=== PATIENT | male | born 1960 | race African-American/Black ===

== ENCOUNTER 2016-06-19 15:42 | Emergency (ER) | payer MEDICAID ==
[~2016-06-19] VITALS: Ht 182.9 cm; Wt 99.0 kg
[~2016-06-19 15:42] MED LIST: AMLO-512 PO
[2016-06-19 17:45] VITALS: BP 124/88
== END 2016-06-19 18:59 | disposition left against medical advice (07) ==
LOC: EMS 15:50
DX: S61.451A Open bite of right hand, initial encounter (principal); I10 Essential (primary) hypertension; F17.210 Nicotine dependence, cigarettes, uncomplicated; Z53.21 Procedure and treatment not carried out due to patient leaving prior to being seen by health care provider; W54.0XXA Bitten by dog, initial encounter; Y93.89 Activity, other specified; Y92.89 Other specified places as the place of occurrence of the external cause; Y99.8 Other external cause status

== ENCOUNTER 2016-06-24 00:05 | Emergency (ER) | payer MEDICAID ==
[~2016-06-24] VITALS: Ht 182.9 cm; Wt 100.0 kg
[2016-06-24] MEDS ORDERED: SULFAMETHOX/TRIMETH DS 800-160 MG/TABLET PO ONE (02:00)
[2016-06-24] MEDS ORDERED: CEPHALEXIN MONOHYDRATE 500 MG CAPSULE PO ONE (02:00)
[2016-06-24 02:04] VITALS: BP 133/86
== END 2016-06-24 02:04 | disposition home or self-care (01) ==
LOC: EMS 00:06
DX: L02.211 Cutaneous abscess of abdominal wall (principal); A49.02 Methicillin resistant Staphylococcus aureus infection, unspecified site; I10 Essential (primary) hypertension; F11.90 Opioid use, unspecified, uncomplicated; F17.210 Nicotine dependence, cigarettes, uncomplicated
CPT/HCPCS: 99283

== ENCOUNTER → 2017-09-23 | Outpatient (CLI) | payer MEDICAID ==
[2017-09-23 12:46] LABS: BASOPHILS % (AUTO) 0.7 % (0.0-2.0); EOSINOPHILS % (AUTO) 3.1 % (1.0-6.0); HEMATOCRIT 40.1 % (41-53); HEMOGLOBIN 13.5 g/dL (13.5-17.5); LYMPHOCYTES # (AUTO) 1.8 K/uL (1.0-4.8); LYMPHOCYTES % (AUTO) 31.9 % (22.0-44.0); MEAN CORPUSCULAR HEMOGLOBIN 29.8 pg (26.0-34.0); MEAN CORPUSCULAR HGB CONC 33.6 G/dL (31.0-37.0); MEAN CORPUSCULAR VOLUME 89 fL (80-100); MONOCYTES # (AUTO) 0.5 K/uL (0.1-1.0); MONOCYTES % (AUTO) 9.8 % (2.0-9.0); NEUTROPHILS % (AUTO) 54.5 % (40.0-70.0); PLATELET COUNT (AUTO) 205 K/uL (150-450); RED BLOOD CELL COUNT(AUTO) 4.52 MIL/uL (4.50-5.90); RED CELL DISTRIBUTION WIDTH 12.3 % (11.5-14.5)
[2017-09-23 12:58] LABS: HEMOGLOBIN A1C 5.2 % (4.5-6.2)
[2017-09-23 13:42] LABS: ALANINE AMINOTRANSFERASE 48 U/L (12-78); ALBUMIN 3.8 g/dL (3.4-5.0); ALKALINE PHOSPHATASE 74 U/L (46-116); ANION GAP 8 mmol/L (8-16); ASPARTATE AMINOTRANSFERASE 37 U/L (15-37); BILIRUBIN,TOTAL 0.5 mg/dL (0.1-1.0); CALCIUM, TOTAL 8.8 mg/dL (8.8-10.5); CARBON DIOXIDE 29 mmol/L (22-29); CHLORIDE 100 mmol/L (98-107); CHOL/HDL RATIO 2.6 (4.2-7.3); CHOLESTEROL 129 mg/dL (131-200); CREATININE 0.97 mg/dL (0.60-1.30); FREE T4 (FREE THYROXINE) 1.21 ng/dL (0.76-1.46); GLOMERULAR FILTR. RATE CALC > 60 mL/min (>60); GLUCOSE,RANDOM 137 mg/dL (70-110); HDL CHOLESTEROL 49 mg/dL (40-60); LDL CHOL (CALC.) 59 mg/dL (0-130); SODIUM SERUM 137 mmol/L (136-145); THYROID STIMULATING HORMONE 0.99 uIU/mL (0.36-3.74); TOTAL PROTEIN, SERUM 7.5 g/dL (6.4-8.2); TRIGLYCERIDES 107 mg/dL (15-150); UREA NITROGEN, BLOOD 12 mg/dL (7-18)
== END | disposition home or self-care (01) ==
LOC: LABPV 11:13
PROVIDERS: ATTEND Internal Medicine Cardiovascular Disease
DX: I11.0 Hypertensive heart disease with heart failure (principal); I50.9 Heart failure, unspecified; E11.8 Type 2 diabetes mellitus with unspecified complications; D56.5 Hemoglobin E-beta thalassemia; E55.9 Vitamin D deficiency, unspecified
CPT/HCPCS: 82306; 83036; 83735; 84439; 84443

== ENCOUNTER 2018-08-28 08:27 | Emergency (ER) | payer MEDICAID ==
[~2018-08-28] VITALS: Ht 182.9 cm; Wt 101.8 kg
[2018-08-28 11:00] VITALS: BP 89/90
[2018-08-28] MEDS ORDERED: CARISOPRODOL 350 MG TABLET PO ONE (11:15)
[2018-08-28] MEDS ORDERED: OxyCODONE HCL/ACETAMINOPHEN 5-325 MG TABLET PO ONE (11:15)
[2018-08-28 11:32] LABS: APPEARANCE,URINE CLEAR (CLEAR); GLUCOSE, URINE (UA) NEGATIVE (NEGATIVE); KETONES,URINE TRACE mg/dL (NEGATIVE); LEUKOCYTE ESTERASE ,URINE SMALL (NEGATIVE); NITRATE,URINE NEGATIVE (NEGATIVE); OCCULT BLOOD,URINE NEGATIVE (NEGATIVE); PH,URINE 5.5 (5.0-8.0); PROTEIN,URINE NEGATIVE (NEGATIVE)
[2018-08-28 11:49] LABS: BILIRUBIN,URINE PRELIM. POSITIVE (NEGATIVE); RBC,URINE None Seen /HPF (0-2)
[2018-08-28 11:50] LABS: BACTERIA,URINE Few /HPF (None Seen); SQUAMOUS EPITHELIAL CELL,UR Rare /LPF (None Seen)
== END 2018-08-28 14:06 | disposition home or self-care (01) ==
LOC: EMS 08:28
DX: S39.012A Strain of muscle, fascia and tendon of lower back, initial encounter (principal); I10 Essential (primary) hypertension; F17.210 Nicotine dependence, cigarettes, uncomplicated; F11.90 Opioid use, unspecified, uncomplicated; X58.XXXA Exposure to other specified factors, initial encounter; Y93.89 Activity, other specified; Y92.89 Other specified places as the place of occurrence of the external cause; Y99.8 Other external cause status

== ENCOUNTER 2019-08-16 11:47 | Emergency (ER) | payer MEDICAID ==
[~2019-08-16] VITALS: Ht 172.7 cm; Wt 85.0 kg
[~2019-08-16 11:47] MED LIST changes: -AMLO-512 PO; +AMLO10TA7 PO
[2019-08-16] MEDS ORDERED: METO50 PO (11:57)
[2019-08-16 14:24] LABS: INFLUENZA TYPE A NEGATIVE FOR TYPE A (NEGATIVE); INFLUENZA TYPE B NEGATIVE FOR TYPE B (NEGATIVE)
[2019-08-16 14:45] VITALS: BP 140/78
== END 2019-08-16 14:52 | disposition home or self-care (01) ==
LOC: EMS 11:49
DX: J20.9 Acute bronchitis, unspecified (principal); R19.7 Diarrhea, unspecified; I10 Essential (primary) hypertension; F17.210 Nicotine dependence, cigarettes, uncomplicated; F11.90 Opioid use, unspecified, uncomplicated; Z79.899 Other long term (current) drug therapy
CPT/HCPCS: 87804

== ENCOUNTER 2020-11-19 07:41 | Emergency (ER) | payer MEDICAID ==
[~2020-11-19] VITALS: Ht 182.9 cm; Wt 104.5 kg
[~2020-11-19 07:41] MED LIST changes: +AMLO-258 PO; -AMLO10TA7 PO; +METO50 PO
[2020-11-19] MEDS ORDERED: AMOX500C2 PO (07:49)
[2020-11-19 09:30] LABS: BASOPHILS % (AUTO) 0.8 % (0.0-2.0); EOSINOPHILS % (AUTO) 4.9 % (1.0-6.0); HEMATOCRIT 36.1 % (41-53); HEMOGLOBIN 11.7 g/dL (13.5-17.5); LYMPHOCYTES # (AUTO) 2.2 K/uL (1.0-4.8); LYMPHOCYTES % (AUTO) 38.1 % (22.0-44.0); MEAN CORPUSCULAR HEMOGLOBIN 29.7 pg (26.0-34.0); MEAN CORPUSCULAR HGB CONC 32.3 G/dL (31.0-37.0); MEAN CORPUSCULAR VOLUME 92 fL (80-100); MONOCYTES # (AUTO) 0.7 K/uL (0.1-1.0); NEUTROPHILS # (AUTO) 2.5 K/uL (1.8-7.7); NEUTROPHILS % (AUTO) 43.2 % (40.0-70.0); PLATELET COUNT (AUTO) 220 K/uL (150-450); RED BLOOD CELL COUNT(AUTO) 3.92 MIL/uL (4.50-5.90)
[2020-11-19 09:37] LABS: APPEARANCE,URINE CLEAR (CLEAR); BILIRUBIN,URINE NEGATIVE (NEGATIVE); GLUCOSE, URINE (UA) NEGATIVE (NEGATIVE); KETONES,URINE NEGATIVE (NEGATIVE); LEUKOCYTE ESTERASE ,URINE TRACE (NEGATIVE); NITRATE,URINE NEGATIVE (NEGATIVE); OCCULT BLOOD,URINE NEGATIVE (NEGATIVE); PROTEIN,URINE NEGATIVE (NEGATIVE); UROBILINOGEN,URINE 0.2 mg/dL (<=1.0)
[2020-11-19 09:40] LABS: ANION GAP 6 mmol/L (8-16); CALCIUM, TOTAL 8.4 mg/dL (8.8-10.5); CARBON DIOXIDE 33 mmol/L (22-29); CHLORIDE 103 mmol/L (98-107); CREATININE 0.95 mg/dL (0.60-1.30); GLOMERULAR FILTR. RATE CALC > 60 mL/min (>60); GLUCOSE,RANDOM 130 mg/dL (70-110); POTASSIUM 3.9 mmol/L (3.5-5.1); SODIUM SERUM 142 mmol/L (136-145); UREA NITROGEN, BLOOD 13 mg/dL (7-18)
[2020-11-19 09:49] LABS: ALANINE AMINOTRANSFERASE 23 U/L (12-78); ALKALINE PHOSPHATASE 71 U/L (46-116); ASPARTATE AMINOTRANSFERASE 21 U/L (15-37); BILIRUBIN,TOTAL 0.2 mg/dL (0.1-1.0); TOTAL PROTEIN, SERUM 6.6 g/dL (6.4-8.2)
[2020-11-19 09:58] LABS: B-TYPE NATRIURETIC PEPTIDE 30 pg/mL (0-100)
[2020-11-19 10:06] LABS: BACTERIA,URINE None Seen /HPF (None Seen); RBC,URINE None Seen /HPF (0-2); SQUAMOUS EPITHELIAL CELL,UR None Seen /LPF (None Seen)
[2020-11-19 10:37] VITALS: BP 122/70
== END 2020-11-19 10:36 | disposition home or self-care (01) ==
LOC: EMS 07:44
DX: R60.0 Localized edema (principal); R77.0 Abnormality of albumin; I10 Essential (primary) hypertension; F17.210 Nicotine dependence, cigarettes, uncomplicated; F11.90 Opioid use, unspecified, uncomplicated
CPT/HCPCS: 80053; 81001; 83880; 85025; 85379; 99283

== ENCOUNTER 2020-12-02 08:21 | Emergency (ER) | payer MEDICAID ==
[~2020-12-02] VITALS: Ht 185.4 cm; Wt 106.8 kg
[~2020-12-02 08:21] MED LIST changes: +AMOX500C2 PO
[2020-12-02 08:32] VITALS: BP 126/81
== END 2020-12-02 09:17 | disposition home or self-care (01) ==
LOC: EMS 08:25
DX: I10 Essential (primary) hypertension (principal); R60.0 Localized edema
CPT/HCPCS: 99283; Z7502

== ENCOUNTER 2021-08-31 17:50 | Emergency (ER) | payer MEDICAID ==
[~2021-08-31] VITALS: Ht 182.9 cm; Wt 101.0 kg
[2021-08-31 18:36] LABS: BASOPHILS % (AUTO) 0.4 % (0.0-2.0); EOSINOPHILS % (AUTO) 3.8 % (1.0-6.0); HEMATOCRIT 35.8 % (41-53); HEMOGLOBIN 11.5 g/dL (13.5-17.5); LYMPHOCYTES # (AUTO) 3.2 K/uL (1.0-4.8); LYMPHOCYTES % (AUTO) 44.3 % (22.0-44.0); MEAN CORPUSCULAR HEMOGLOBIN 28.8 pg (26.0-34.0); MEAN CORPUSCULAR HGB CONC 32.2 G/dL (31.0-37.0); MEAN CORPUSCULAR VOLUME 89 fL (80-100); MONOCYTES # (AUTO) 0.9 K/uL (0.1-1.0); MONOCYTES % (AUTO) 12.9 % (2.0-9.0); NEUTROPHILS # (AUTO) 2.8 K/uL (1.8-7.7); NEUTROPHILS % (AUTO) 38.6 % (40.0-70.0); PLATELET COUNT (AUTO) 204 K/uL (150-450); RED BLOOD CELL COUNT(AUTO) 4.01 MIL/uL (4.50-5.90); RED CELL DISTRIBUTION WIDTH 12.9 % (11.5-14.5)
[2021-08-31 18:44] LABS: ANION GAP 8 mmol/L (8-16); CALCIUM, TOTAL 8.5 mg/dL (8.8-10.5); CARBON DIOXIDE 30 mmol/L (22-29); CHLORIDE 102 mmol/L (98-107); CREATININE 1.07 mg/dL (0.60-1.30); GLOMERULAR FILTR. RATE CALC > 60 mL/min (>60); GLUCOSE,RANDOM 92 mg/dL (70-110); POTASSIUM 3.5 mmol/L (3.5-5.1); SODIUM SERUM 140 mmol/L (136-145); UREA NITROGEN, BLOOD 19 mg/dL (7-18)
[2021-08-31 18:49] LABS: ALANINE AMINOTRANSFERASE 20 U/L (12-78); ALBUMIN 3.5 g/dL (3.4-5.0); ALKALINE PHOSPHATASE 80 U/L (46-116); ASPARTATE AMINOTRANSFERASE 14 U/L (15-37); BILIRUBIN,TOTAL 0.2 mg/dL (0.1-1.0); TOTAL PROTEIN, SERUM 7.3 g/dL (6.4-8.2)
[2021-08-31 21:01] VITALS: BP 117/93
== END 2021-08-31 21:07 | disposition home or self-care (01) ==
LOC: EMS 17:52
DX: R20.2 Paresthesia of skin (principal); R60.0 Localized edema; I10 Essential (primary) hypertension; F17.210 Nicotine dependence, cigarettes, uncomplicated; Z79.899 Other long term (current) drug therapy
CPT/HCPCS: 80053; 85025; 93971; 99284

== ENCOUNTER 2022-01-01 07:50 | Emergency (ER) | payer MEDICAID ==
[~2022-01-01] VITALS: Ht 182.9 cm; Wt 102.3 kg
[2022-01-01] MEDS ORDERED: METH5SOL3 PO (08:05)
[2022-01-01] MEDS ORDERED: KETOROLAC TROMETHAMINE 30 MG/ML VIAL IM ONE (08:45)
[2022-01-01 10:35] VITALS: BP 112/68
== END 2022-01-01 10:37 | disposition home or self-care (01) ==
LOC: EMS 07:59
DX: M79.671 Pain in right foot (principal); I10 Essential (primary) hypertension; K74.60 Unspecified cirrhosis of liver; F17.210 Nicotine dependence, cigarettes, uncomplicated; Z87.19 Personal history of other diseases of the digestive system
CPT/HCPCS: 99283; 73630; 96372; J1885

== ENCOUNTER 2022-03-07 07:30 | Emergency (ER) | payer MEDICAID ==
[~2022-03-07] VITALS: Ht 182.9 cm; Wt 104.5 kg
[~2022-03-07 07:30] MED LIST changes: -AMOX500C2 PO; +METH5SOL3 PO
[2022-03-07] MEDS ORDERED: ANUSHCS PR (08:06)
[2022-03-07] MEDS ORDERED: DOCU-350 PO (08:06)
[2022-03-07 08:20] VITALS: BP 144/84
== END 2022-03-07 08:31 | disposition home or self-care (01) ==
LOC: EMS 07:36
DX: K64.9 Unspecified hemorrhoids (principal); I10 Essential (primary) hypertension; F17.210 Nicotine dependence, cigarettes, uncomplicated; K74.60 Unspecified cirrhosis of liver
CPT/HCPCS: 99282; Z7502

== ENCOUNTER 2022-11-24 07:35 | Emergency (ER) | payer MEDICAID, OTHER ==
[~2022-11-24] VITALS: Ht 188 cm; Wt 106.8 kg
[~2022-11-24 07:35] MED LIST changes: +ANUSHCS PR; +DOCU-350 PO
[2022-11-24 07:39] VITALS: TEMP 98.1
[2022-11-24] MEDS ORDERED: METHADONE PO (07:39)
[2022-11-24 08:10] LABS: BASOPHILS % (AUTO) 0.5 % (0.0-2.0); EOSINOPHILS % (AUTO) 3.6 % (1.0-6.0); HEMATOCRIT 35.5 % (41-53); HEMOGLOBIN 11.4 g/dL (13.5-17.5); LYMPHOCYTES # (AUTO) 1.9 K/uL (1.0-4.8); LYMPHOCYTES % (AUTO) 28.9 % (22.0-44.0); MEAN CORPUSCULAR HEMOGLOBIN 29.5 pg (26.0-34.0); MEAN CORPUSCULAR VOLUME 92 fL (80-100); MONOCYTES # (AUTO) 0.9 K/uL (0.1-1.0); MONOCYTES % (AUTO) 13.1 % (2.0-9.0); NEUTROPHILS # (AUTO) 3.5 K/uL (1.8-7.7); NEUTROPHILS % (AUTO) 53.9 % (40.0-70.0); PLATELET COUNT (AUTO) 204 K/uL (150-450); RED BLOOD CELL COUNT(AUTO) 3.85 MIL/uL (4.50-5.90); RED CELL DISTRIBUTION WIDTH 13.1 % (11.5-14.5)
[2022-11-24 08:14] LABS: ANION GAP 7 mmol/L (8-16); CALCIUM, TOTAL 8.4 mg/dL (8.8-10.5); CARBON DIOXIDE 29 mmol/L (22-29); CHLORIDE 101 mmol/L (98-107); CREATININE 1.06 mg/dL (0.60-1.30); GLOMERULAR FILTR. RATE CALC > 60 mL/min (>60); GLUCOSE,RANDOM 131 mg/dL (70-110); SODIUM SERUM 137 mmol/L (136-145)
[2022-11-24 08:20] LABS: ALANINE AMINOTRANSFERASE 31 U/L (12-78); ALBUMIN 3.4 g/dL (3.4-5.0); ALKALINE PHOSPHATASE 72 U/L (46-116); ASPARTATE AMINOTRANSFERASE 20 U/L (15-37); BILIRUBIN,TOTAL 0.2 mg/dL (0.1-1.0); LIPASE 41 U/L (73-393); TOTAL PROTEIN, SERUM 7.1 g/dL (6.4-8.2)
[2022-11-24 08:24] LABS: APPEARANCE,URINE CLEAR (CLEAR); BILIRUBIN,URINE NEGATIVE (NEGATIVE); GLUCOSE, URINE (UA) NEGATIVE (NEGATIVE); KETONES,URINE NEGATIVE (NEGATIVE); LEUKOCYTE ESTERASE ,URINE NEGATIVE (NEGATIVE); NITRATE,URINE NEGATIVE (NEGATIVE); OCCULT BLOOD,URINE NEGATIVE (NEGATIVE); PH,URINE 7.5 (5.0-8.0); PROTEIN,URINE NEGATIVE (NEGATIVE); SPECIFIC GRAVITIY, URINE 1.015 (1.003-1.030); UROBILINOGEN,URINE <=1.0 mg/dL (<=1.0)
[2022-11-24] MEDS ORDERED: ONDA-104 PO (09:03)
[2022-11-24 09:41] VITALS: BP 140/82; PULSE 70; RESP 18
== END 2022-11-24 09:41 | disposition home or self-care (01) ==
LOC: EMS 07:44
DX: R11.0 Nausea (principal); R14.0 Abdominal distension (gaseous); I10 Essential (primary) hypertension; K74.60 Unspecified cirrhosis of liver; F17.210 Nicotine dependence, cigarettes, uncomplicated
CPT/HCPCS: 80053; 81003; 83690; 85025; 99283

== ENCOUNTER 2023-03-23 06:56 | Emergency (ER) | payer OTHER ==
[~2023-03-23] VITALS: Ht 182.9 cm; Wt 93.0 kg
[~2023-03-23 06:56] MED LIST changes: -ANUSHCS PR; -DOCU-350 PO; -METH5SOL3 PO; +METHADONE PO; +ONDA-104 PO
[2023-03-23 06:57] VITALS: BP 159/88; PULSE 78; RESP 16; TEMP 98.5
[2023-03-23 07:26] LABS: APPEARANCE,URINE CLEAR (CLEAR); BILIRUBIN,URINE NEGATIVE (NEGATIVE); COLOR,URINE COLORLESS (YELLOW); GLUCOSE, URINE (UA) NEGATIVE (NEGATIVE); KETONES,URINE NEGATIVE (NEGATIVE); LEUKOCYTE ESTERASE ,URINE NEGATIVE (NEGATIVE); NITRATE,URINE NEGATIVE (NEGATIVE); OCCULT BLOOD,URINE NEGATIVE (NEGATIVE); PH,URINE 7.5 (5.0-8.0); PROTEIN,URINE NEGATIVE (NEGATIVE); SPECIFIC GRAVITIY, URINE 1.011 (1.003-1.030); UROBILINOGEN,URINE <=1.0 mg/dL (<=1.0)
[2023-03-23 07:40] LABS: BACTERIA,URINE None Seen /HPF (None Seen); RBC,URINE None Seen /HPF (0-2); SQUAMOUS EPITHELIAL CELL,UR Rare /LPF (None Seen); WBC,URINE None Seen /HPF (0-5)
[2023-03-23] MEDS ORDERED: LEVO-72 PO (07:46)
== END 2023-03-23 08:02 | disposition home or self-care (01) ==
LOC: EMS 06:58
DX: R30.0 Dysuria (principal); I10 Essential (primary) hypertension; F17.210 Nicotine dependence, cigarettes, uncomplicated; Z90.49 Acquired absence of other specified parts of digestive tract
CPT/HCPCS: 81001; 99283

== ENCOUNTER 2023-06-23 08:16 | Emergency (ER) | payer MEDICAID, OTHER ==
[~2023-06-23] VITALS: Ht 183.5 cm; Wt 104.5 kg
[~2023-06-23 08:16] MED LIST changes: +LEVO-72 PO; -METO50 PO; -ONDA-104 PO
[2023-06-23 08:23] VITALS: TEMP 97.8
[2023-06-23 09:15] LABS: BASOPHILS % (AUTO) 0.5 % (0.0-2.0); EOSINOPHILS % (AUTO) 3.1 % (1.0-6.0); HEMOGLOBIN 11.6 g/dL (13.5-17.5); LYMPHOCYTES # (AUTO) 1.8 K/uL (1.0-4.8); LYMPHOCYTES % (AUTO) 29.3 % (22.0-44.0); MEAN CORPUSCULAR HEMOGLOBIN 29.2 pg (26.0-34.0); MEAN CORPUSCULAR HGB CONC 32.1 G/dL (31.0-37.0); MEAN CORPUSCULAR VOLUME 91 fL (80-100); MONOCYTES # (AUTO) 0.8 K/uL (0.1-1.0); MONOCYTES % (AUTO) 13.2 % (2.0-9.0); NEUTROPHILS # (AUTO) 3.3 K/uL (1.8-7.7); NEUTROPHILS % (AUTO) 53.9 % (40.0-70.0); PLATELET COUNT (AUTO) 232 K/uL (150-450); RED BLOOD CELL COUNT(AUTO) 3.97 MIL/uL (4.50-5.90); RED CELL DISTRIBUTION WIDTH 12.8 % (11.5-14.5); WHITE BLOOD COUNT (AUTO) 6.1 K/uL (4.5-11.0)
[2023-06-23 09:23] LABS: ANION GAP 7 mmol/L (8-16); CARBON DIOXIDE 30 mmol/L (22-29); CHLORIDE 103 mmol/L (98-107); CREATININE 1.05 mg/dL (0.60-1.30); GLUCOSE,RANDOM 127 mg/dL (70-110); POTASSIUM 4.1 mmol/L (3.5-5.1); SODIUM SERUM 140 mmol/L (136-145); UREA NITROGEN, BLOOD 14 mg/dL (7-18)
[2023-06-23 09:24] LABS: CALCIUM, TOTAL 8.8 mg/dL (8.8-10.5); GLOMERULAR FILTR. RATE CALC > 60 mL/min (>60)
[2023-06-23 09:29] LABS: ALANINE AMINOTRANSFERASE 35 U/L (12-78); ALBUMIN 3.6 g/dL (3.4-5.0); ALKALINE PHOSPHATASE 64 U/L (46-116); ASPARTATE AMINOTRANSFERASE 20 U/L (15-37); BILIRUBIN,TOTAL 0.3 mg/dL (0.1-1.0); TOTAL PROTEIN, SERUM 6.9 g/dL (6.4-8.2)
[2023-06-23 09:31] LABS: TROPONIN I-HIGH SENSITIVITY 4 ng/L (<76)
[2023-06-23 09:32] LABS: B-TYPE NATRIURETIC PEPTIDE 46 pg/mL (0-100)
[2023-06-23] MEDS ORDERED: ONDANSETRON HCL 4 MG/2 ML VIAL IVP ONE (09:45)
[2023-06-23] MEDS ORDERED: KETOROLAC TROMETHAMINE 30 MG/ML VIAL IVP ONE (10:30)
[2023-06-23] MEDS ORDERED: OxyCODONE HCL/ACETAMINOPHEN 5-325 MG TABLET PO ONE (10:30)
[2023-06-23 11:27] LABS: APPEARANCE,URINE CLEAR (CLEAR); BILIRUBIN,URINE NEGATIVE (NEGATIVE); COLOR,URINE LIGHT YELLOW (YELLOW); GLUCOSE, URINE (UA) NEGATIVE (NEGATIVE); KETONES,URINE NEGATIVE (NEGATIVE); LEUKOCYTE ESTERASE ,URINE NEGATIVE (NEGATIVE); NITRATE,URINE NEGATIVE (NEGATIVE); OCCULT BLOOD,URINE NEGATIVE (NEGATIVE); PH,URINE 5.5 (5.0-8.0); PROTEIN,URINE NEGATIVE (NEGATIVE); SPECIFIC GRAVITIY, URINE 1.022 (1.003-1.030); UROBILINOGEN,URINE <=1.0 mg/dL (<=1.0)
[2023-06-23 12:03] VITALS: BP 130/78; PULSE 70; RESP 16
[2023-06-23] MEDS ORDERED: PERCT PO (12:35)
== END 2023-06-23 12:42 | disposition home or self-care (01) ==
LOC: EMS 08:16
DX: S62.667A Nondisplaced fracture of distal phalanx of left little finger, initial encounter for closed fracture (principal); R53.1 Weakness; I10 Essential (primary) hypertension; F17.210 Nicotine dependence, cigarettes, uncomplicated; N40.0 Benign prostatic hyperplasia without lower urinary tract symptoms; Z90.49 Acquired absence of other specified parts of digestive tract; X58.XXXA Exposure to other specified factors, initial encounter; Y93.89 Activity, other specified; Y92.89 Other specified places as the place of occurrence of the external cause; Y99.8 Other external cause status
CPT/HCPCS: 99285; 96374; 71045; 96375; 80053; 81003; 83880; 84484; 85025; 36415; 73130; 93005; 29130; J1885; J2405

== ENCOUNTER 2023-08-23 07:23 | Emergency (ER) | payer MEDICAID ==
[~2023-08-23] VITALS: Ht 182.9 cm; Wt 108.2 kg
[~2023-08-23 07:23] MED LIST changes: +PERCT PO
[2023-08-23 07:42] VITALS: TEMP 98
[2023-08-23 07:58] LABS: BASOPHILS % (AUTO) 0.4 % (0.0-2.0); HEMATOCRIT 37.8 % (41-53); HEMOGLOBIN 12.2 g/dL (13.5-17.5); LYMPHOCYTES # (AUTO) 1.4 K/uL (1.0-4.8); LYMPHOCYTES % (AUTO) 23.4 % (22.0-44.0); MEAN CORPUSCULAR HEMOGLOBIN 29.2 pg (26.0-34.0); MEAN CORPUSCULAR HGB CONC 32.2 G/dL (31.0-37.0); MEAN CORPUSCULAR VOLUME 91 fL (80-100); MONOCYTES # (AUTO) 0.7 K/uL (0.1-1.0); NEUTROPHILS # (AUTO) 3.9 K/uL (1.8-7.7); NEUTROPHILS % (AUTO) 64.2 % (40.0-70.0); PLATELET COUNT (AUTO) 205 K/uL (150-450); RED BLOOD CELL COUNT(AUTO) 4.17 MIL/uL (4.50-5.90); RED CELL DISTRIBUTION WIDTH 13.1 % (11.5-14.5)
[2023-08-23 08:07] LABS: ANION GAP 8 mmol/L (8-16); CALCIUM, TOTAL 8.6 mg/dL (8.8-10.5); CARBON DIOXIDE 29 mmol/L (22-29); CHLORIDE 100 mmol/L (98-107); CREATININE 1.02 mg/dL (0.60-1.30); GLOMERULAR FILTR. RATE CALC > 60 mL/min (>60); GLUCOSE,RANDOM 134 mg/dL (70-110); POTASSIUM 3.7 mmol/L (3.5-5.1); SODIUM SERUM 137 mmol/L (136-145); UREA NITROGEN, BLOOD 8 mg/dL (7-18)
[2023-08-23 08:12] LABS: ALANINE AMINOTRANSFERASE 23 U/L (12-78); ALBUMIN 3.5 g/dL (3.4-5.0); ALKALINE PHOSPHATASE 68 U/L (46-116); ASPARTATE AMINOTRANSFERASE 18 U/L (15-37); BILIRUBIN,TOTAL 0.3 mg/dL (0.1-1.0); TOTAL PROTEIN, SERUM 7.3 g/dL (6.4-8.2)
[2023-08-23 08:16] LABS: TROPONIN I-HIGH SENSITIVITY 4 ng/L (<76)
[2023-08-23] MEDS: KETOROLAC TROMETHAMINE 30 MG/ML VIAL IVP ONE (10:37)
[2023-08-23] MEDS: LORazepam 2 MG/ML VIAL IVP ONE (10:37)
[2023-08-23] MEDS: SODIUM CHLORIDE 0.9% 1,000 ML IV ONE (10:38)
[2023-08-23] MEDS ORDERED: IBUP-1492 PO (10:42)
[2023-08-23 12:55] VITALS: BP 143/84; PULSE 65; RESP 18
== END 2023-08-23 13:05 | disposition home or self-care (01) ==
LOC: EMS 07:42
DX: M25.562 Pain in left knee (principal); R07.89 Other chest pain; I10 Essential (primary) hypertension; F17.210 Nicotine dependence, cigarettes, uncomplicated; Z90.49 Acquired absence of other specified parts of digestive tract
CPT/HCPCS: 99285; 96374; 71045; 96361; 96375; 80053; 84484; 85025; 36415; 93005; J1885; J2060; J7030

== ENCOUNTER 2023-11-16 06:53 | Emergency (ER) | payer MEDICAID ==
[~2023-11-16] VITALS: Ht 182.9 cm; Wt 102.3 kg
[~2023-11-16 06:53] MED LIST changes: +IBUP-1492 PO; -LEVO-72 PO; -PERCT PO
[2023-11-16 06:59] VITALS: BP 150/86
[2023-11-16] MEDS: ALBUTEROL SULFATE 2.5 MG/0.5 ML NEB SOLUTION NEB ONE (08:05)
[2023-11-16] MEDS: IPRATROPIUM BROMIDE 0.5 MG/2.5 ML NEB SOLUTION NEB ONE (08:05)
[2023-11-16 08:07] VITALS: PULSE 60; RESP 18; O2SAT 100
[2023-11-16 08:08] VITALS: PULSE 60; RESP 18; O2SAT 100
[2023-11-16] MEDS: MethylPREDNISolone SOD SUCC 125 MG/2 ML VIAL IVP ONE (08:09)
[2023-11-16 08:14] LABS: BASOPHILS % (AUTO) 0.6 % (0.0-2.0); HEMATOCRIT 38.6 % (41-53); HEMOGLOBIN 12.5 g/dL (13.5-17.5); LYMPHOCYTES # (AUTO) 1.5 K/uL (1.0-4.8); LYMPHOCYTES % (AUTO) 29.8 % (22.0-44.0); MEAN CORPUSCULAR HEMOGLOBIN 29.4 pg (26.0-34.0); MEAN CORPUSCULAR HGB CONC 32.3 G/dL (31.0-37.0); MEAN CORPUSCULAR VOLUME 91 fL (80-100); MONOCYTES # (AUTO) 0.7 K/uL (0.1-1.0); MONOCYTES % (AUTO) 14.2 % (2.0-9.0); NEUTROPHILS # (AUTO) 2.7 K/uL (1.8-7.7); NEUTROPHILS % (AUTO) 52.4 % (40.0-70.0); PLATELET COUNT (AUTO) 212 K/uL (150-450); RED BLOOD CELL COUNT(AUTO) 4.24 MIL/uL (4.50-5.90); RED CELL DISTRIBUTION WIDTH 12.8 % (11.5-14.5); WHITE BLOOD COUNT (AUTO) 5.2 K/uL (4.5-11.0)
[2023-11-16 08:25] LABS: ANION GAP 4 mmol/L (8-16); CALCIUM, TOTAL 9.2 mg/dL (8.8-10.5); CARBON DIOXIDE 31 mmol/L (22-29); CHLORIDE 102 mmol/L (98-107); CREATININE 1.08 mg/dL (0.60-1.30); GLOMERULAR FILTR. RATE CALC > 60 mL/min (>60); GLUCOSE,RANDOM 114 mg/dL (70-110); POTASSIUM 4.3 mmol/L (3.5-5.1); SODIUM SERUM 137 mmol/L (136-145); UREA NITROGEN, BLOOD 13 mg/dL (7-18)
[2023-11-16 08:26] LABS: B-TYPE NATRIURETIC PEPTIDE < 5 pg/mL (0-100)
[2023-11-16 08:29] LABS: PROTHROMBIN TIME 10.9 SEC (9.4-11.6)
[2023-11-16 08:33] LABS: ALANINE AMINOTRANSFERASE 26 U/L (12-78); ALBUMIN 3.6 g/dL (3.4-5.0); ALKALINE PHOSPHATASE 64 U/L (46-116); ASPARTATE AMINOTRANSFERASE 18 U/L (15-37); BILIRUBIN,TOTAL 0.3 mg/dL (0.1-1.0); TOTAL PROTEIN, SERUM 7.5 g/dL (6.4-8.2)
[2023-11-16 08:45] LABS: TROPONIN I-HIGH SENSITIVITY 4 ng/L (<76)
[2023-11-16] MEDS: ALBUTEROL SULFATE HFA 90 MCG/PUFF 8 GM INHALER IH ONE (08:58)
[2023-11-16 08:59] VITALS: PULSE 64; RESP 14; O2SAT 99
[2023-11-16] MEDS ORDERED: PRED-554 PO (10:18)
[2023-11-16] MEDS: OxyCODONE HCL/ACETAMINOPHEN 5-325 MG TABLET PO ONE (10:24)
== END 2023-11-16 10:37 | disposition home or self-care (01) ==
LOC: EMS 06:53
DX: J06.9 Acute upper respiratory infection, unspecified (principal); J98.01 Acute bronchospasm; I10 Essential (primary) hypertension; F17.210 Nicotine dependence, cigarettes, uncomplicated; Z90.49 Acquired absence of other specified parts of digestive tract
CPT/HCPCS: 99285; 96374; 71045; 80053; 83880; 84484; 85025; 85610; 85730; 36415; 94640; 93005; J2919; J7613

== ENCOUNTER → 2024-01-02 | Emergency (ER) | payer MEDICARE, MEDICAID ==
[~2024-01-02] VITALS: Ht 182.9 cm; Wt 106.8 kg
[~2024-01-02] MED LIST changes: -AMLO-258 PO; +AMLO5TAB66 PO; +CELE-125 PO; +CHLO25TA3 PO; +FINA5TAB41 PO; -IBUP-1492 PO; +KETO15CR2 TP; +METO-408 PO; +OMEP20CA12 PO; +TAMS0.4C94 PO
[2024-01-02 08:00] VITALS: BP 131/69; PULSE 81; RESP 18; TEMP 98.4
== END | disposition still patient (30) ==
LOC: EMS 07:44
DX: G89.29 Other chronic pain (principal); M25.562 Pain in left knee; Z53.21 Procedure and treatment not carried out due to patient leaving prior to being seen by health care provider

== ENCOUNTER 2024-01-03 09:35 | Emergency (ER) | payer MEDICARE, MEDICAID ==
[~2024-01-03] VITALS: Ht 182.9 cm; Wt 100.0 kg
[~2024-01-03 09:35] MED LIST changes: -CHLO25TA3 PO; -KETO15CR2 TP
[2024-01-03 09:46] VITALS: BP 132/72; PULSE 77; RESP 18; TEMP 98.2
[2024-01-03] MEDS ORDERED: OMEP20CA12 PO (11:19)
[2024-01-03] MEDS ORDERED: KETO15CR2 TP (11:19)
[2024-01-03] MEDS ORDERED: CHLO25TA3 PO (11:19)
[2024-01-03] MEDS: ACETAMINOPHEN 325 MG TABLET PO ONE (11:45)
[2024-01-03] MEDS: LIDOCAINE 5% TRANSDERMAL PATCH TD ONE (11:45)
[2024-01-03] MEDS: KETOROLAC TROMETHAMINE 30 MG/ML VIAL IM ONE (11:45)
== END 2024-01-03 12:28 | disposition home or self-care (01) ==
LOC: EMS 09:45
DX: R07.81 Pleurodynia (principal); I10 Essential (primary) hypertension; F17.210 Nicotine dependence, cigarettes, uncomplicated; Z90.49 Acquired absence of other specified parts of digestive tract
CPT/HCPCS: 99283; 71100; 96372; J1885

== ENCOUNTER → 2024-02-17 | Emergency (ER) | payer MEDICARE, MEDICAID ==
[~2024-02-17] VITALS: Ht 182.9 cm; Wt 103.6 kg
[~2024-02-17] MED LIST changes: -CELE-125 PO; +CHLO25TA3 PO; -FINA5TAB41 PO; +KETO15CR2 TP
[2024-02-17] MEDS: ACETAMINOPHEN 325 MG TABLET PO ONE (09:04)
[2024-02-17] MEDS: IBUPROFEN 400 MG TABLET PO ONE (09:04)
[2024-02-17] MEDS: LIDOCAINE 5% TRANSDERMAL PATCH TD ONE (09:05)
[2024-02-17] MEDS: METHOCARBAMOL 500 MG TABLET PO ONE (11:01)
[2024-02-17] MEDS: HYDROCODONE/ACETAMINOPHEN 5-325 MG TABLET PO ONE (12:18)
[2024-02-17 13:20] VITALS: BP 125/70; PULSE 71; RESP 18; TEMP 98.1; O2SAT 99
== END | disposition still patient (30) ==
LOC: EMS 07:37
DX: M19.90 Unspecified osteoarthritis, unspecified site (principal); M54.50 Low back pain, unspecified; I10 Essential (primary) hypertension; F17.210 Nicotine dependence, cigarettes, uncomplicated; Z90.49 Acquired absence of other specified parts of digestive tract
CPT/HCPCS: 72100; 74019; 99284; Z7502; Z7610

== ENCOUNTER 2024-03-23 07:31 | Emergency (ER) | payer MEDICARE, MEDICAID ==
[~2024-03-23] VITALS: Ht 182.9 cm; Wt 104.5 kg
[~2024-03-23 07:31] MED LIST changes: -KETO15CR2 TP; -METO-408 PO; -OMEP20CA12 PO
[2024-03-23 07:35] VITALS: TEMP 97.9
[2024-03-23] MEDS ORDERED: OMEP20CA12 PO (07:38)
[2024-03-23] MEDS: METHOCARBAMOL 500 MG TABLET PO ONE (08:17)
[2024-03-23] MEDS: OxyCODONE HCL/ACETAMINOPHEN 5-325 MG TABLET PO ONE (08:17)
[2024-03-23] MEDS: KETOROLAC TROMETHAMINE 60 MG/2 ML VIAL IM ONE (08:18)
[2024-03-23] MEDS ORDERED: IBUP-1492 PO (08:26)
[2024-03-23] MEDS ORDERED: METH-659 PO (08:26)
[2024-03-23] MEDS ORDERED: PREG25 PO (08:28)
[2024-03-23 08:51] VITALS: BP 145/64; PULSE 72; RESP 18; O2SAT 97
== END 2024-03-23 08:52 | disposition home or self-care (01) ==
LOC: EMS 07:31
DX: G89.29 Other chronic pain (principal); M54.50 Low back pain, unspecified; R20.2 Paresthesia of skin; I10 Essential (primary) hypertension; N40.0 Benign prostatic hyperplasia without lower urinary tract symptoms; F17.210 Nicotine dependence, cigarettes, uncomplicated; Z90.49 Acquired absence of other specified parts of digestive tract; Z79.899 Other long term (current) drug therapy
CPT/HCPCS: 99283; 96372; J1885

== ENCOUNTER 2024-03-29 10:46 | Emergency (ER) | payer MEDICARE, MEDICAID ==
[~2024-03-29] VITALS: Ht 185.4 cm; Wt 95.5 kg
[~2024-03-29 10:46] MED LIST changes: +IBUP-1492 PO; +METH-659 PO; +OMEP20CA12 PO; +PREG25 PO
[2024-03-29 10:52] VITALS: TEMP 98
[2024-03-29] MEDS ORDERED: SENN-374 PO (10:54)
[2024-03-29] MEDS ORDERED: HYDR50CA6 PO (10:54)
[2024-03-29] MEDS ORDERED: METH-811 PO (10:54)
[2024-03-29] MEDS ORDERED: IBUP-2070 PO (10:54)
[2024-03-29] MEDS: CYCLOBENZAPRINE HCL 10 MG TABLET PO ONE (12:41)
[2024-03-29] MEDS: KETOROLAC TROMETHAMINE 30 MG/ML VIAL IM ONE (12:41)
[2024-03-29] MEDS: LIDOCAINE 5% TRANSDERMAL PATCH TD ONE (12:42)
[2024-03-29 13:15] VITALS: BP 123/72; PULSE 77; RESP 18; O2SAT 98
[2024-03-29] MEDS: SENNOSIDES 8.6 MG TABLET PO ONE (13:31)
[2024-03-29] MEDS: POLYETHYLENE GLYCOL 3350 17 GM PACKET PO ONE (13:32)
[2024-03-29 15:06] LABS: GLUCOMETER DEV NAME(LOC) ERT.6; GLUCOSE,POINT OF CARE 83 MG/DL (70-110)
== END 2024-03-29 13:50 | disposition home or self-care (01) ==
LOC: EMS 10:46
DX: G89.29 Other chronic pain (principal); M54.50 Low back pain, unspecified; K59.00 Constipation, unspecified; I10 Essential (primary) hypertension; F17.210 Nicotine dependence, cigarettes, uncomplicated; Z79.1 Long term (current) use of non-steroidal anti-inflammatories (NSAID); Z90.49 Acquired absence of other specified parts of digestive tract; Z79.899 Other long term (current) drug therapy
CPT/HCPCS: 99284; 82962; 96372; J1885

== ENCOUNTER 2024-06-03 10:19 | Emergency (ER) | payer MEDICARE, MEDICAID ==
[~2024-06-03] VITALS: Ht 182.9 cm; Wt 104.5 kg
[~2024-06-03 10:19] MED LIST changes: +HYDR50CA6 PO; -IBUP-1492 PO; +IBUP-2070 PO; -METH-659 PO; +METH-811 PO; -METHADONE PO; -PREG25 PO; +SENN-374 PO
[2024-06-03 10:27] VITALS: BP 145/80; PULSE 82; RESP 18; TEMP 98.5; O2SAT 99
[2024-06-03] MEDS ORDERED: METH5SOL20 PO (10:28)
[2024-06-03 11:29] LABS: BASOPHILS % (AUTO) 0.7 % (0.0-2.0); EOSINOPHILS % (AUTO) 2.9 % (1.0-6.0); HEMATOCRIT 35.7 % (41-53); HEMOGLOBIN 11.5 g/dL (13.5-17.5); LYMPHOCYTES % (AUTO) 37.1 % (22.0-44.0); MEAN CORPUSCULAR HEMOGLOBIN 29.5 pg (26.0-34.0); MEAN CORPUSCULAR HGB CONC 32.3 G/dL (31.0-37.0); MEAN CORPUSCULAR VOLUME 91 fL (80-100); MONOCYTES # (AUTO) 0.5 K/uL (0.1-1.0); MONOCYTES % (AUTO) 9.4 % (2.0-9.0); NEUTROPHILS # (AUTO) 2.6 K/uL (1.8-7.7); NEUTROPHILS % (AUTO) 49.9 % (40.0-70.0); PLATELET COUNT (AUTO) 221 K/uL (150-450); RED BLOOD CELL COUNT(AUTO) 3.91 MIL/uL (4.50-5.90); WHITE BLOOD COUNT (AUTO) 5.3 K/uL (4.5-11.0)
[2024-06-03 11:41] LABS: ANION GAP 5 mmol/L (8-16); CALCIUM, TOTAL 8.2 mg/dL (8.8-10.5); CARBON DIOXIDE 30 mmol/L (22-29); CHLORIDE 103 mmol/L (98-107); CREATININE 1.14 mg/dL (0.60-1.30); GLOMERULAR FILTR. RATE CALC > 60 mL/min (>60); GLUCOSE,RANDOM 136 mg/dL (70-110); SODIUM SERUM 138 mmol/L (136-145); UREA NITROGEN, BLOOD 9 mg/dL (7-18)
[2024-06-03 12:02] LABS: TROPONIN I-HIGH SENSITIVITY Less Than 4 ng/L (<76)
[2024-06-03] MEDS ORDERED: ACET-66 PO (14:04)
[2024-06-03] MEDS: ACETAMINOPHEN 500 MG TABLET PO ONE (14:22)
== END 2024-06-03 14:23 | disposition home or self-care (01) ==
LOC: EMS 10:24
DX: D64.9 Anemia, unspecified (principal); I10 Essential (primary) hypertension; Z79.1 Long term (current) use of non-steroidal anti-inflammatories (NSAID); Z90.49 Acquired absence of other specified parts of digestive tract; Z79.899 Other long term (current) drug therapy
CPT/HCPCS: 80048; 84484; 85025; 99283

== ENCOUNTER → 2024-07-07 | Emergency (ER) | payer MEDICARE, MEDICAID ==
[~2024-07-07] VITALS: Ht 182.9 cm; Wt 104.5 kg
[~2024-07-07] MED LIST changes: +ACET-66 PO; +METH5SOL20 PO
[2024-07-07 10:03] VITALS: TEMP 98.2
[2024-07-07 10:34] LABS: BASOPHILS % (AUTO) 0.4 % (0.0-2.0); EOSINOPHILS % (AUTO) 1.4 % (1.0-6.0); HEMATOCRIT 39.8 % (41-53); HEMOGLOBIN 12.7 g/dL (13.5-17.5); LYMPHOCYTES # (AUTO) 2.3 K/uL (1.0-4.8); LYMPHOCYTES % (AUTO) 33.1 % (22.0-44.0); MEAN CORPUSCULAR HEMOGLOBIN 29.3 pg (26.0-34.0); MEAN CORPUSCULAR HGB CONC 32.1 G/dL (31.0-37.0); MEAN CORPUSCULAR VOLUME 91 fL (80-100); MONOCYTES # (AUTO) 0.7 K/uL (0.1-1.0); MONOCYTES % (AUTO) 10.2 % (2.0-9.0); NEUTROPHILS # (AUTO) 3.8 K/uL (1.8-7.7); NEUTROPHILS % (AUTO) 54.9 % (40.0-70.0); PLATELET COUNT (AUTO) 246 K/uL (150-450); RED BLOOD CELL COUNT(AUTO) 4.36 MIL/uL (4.50-5.90); RED CELL DISTRIBUTION WIDTH 12.9 % (11.5-14.5); WHITE BLOOD COUNT (AUTO) 6.9 K/uL (4.5-11.0)
[2024-07-07 10:35] LABS: COVID AG,FIA SOURCE NASAL SWAB
[2024-07-07 10:42] LABS: ANION GAP 7 mmol/L (8-16); CALCIUM, TOTAL 8.7 mg/dL (8.8-10.5); CARBON DIOXIDE 31 mmol/L (22-29); CHLORIDE 102 mmol/L (98-107); CREATININE 1.05 mg/dL (0.60-1.30); GLOMERULAR FILTR. RATE CALC > 60 mL/min (>60); GLUCOSE,RANDOM 104 mg/dL (70-110); POTASSIUM 4.2 mmol/L (3.5-5.1); SODIUM SERUM 140 mmol/L (136-145); UREA NITROGEN, BLOOD 12 mg/dL (7-18)
[2024-07-07 11:03] LABS: SARS-COV2 (COVID) ANTIGEN,FIA Negative (Negative)
[2024-07-07 11:04] LABS: INFLUENZA TYPE A NEGATIVE FOR TYPE A (NEGATIVE); INFLUENZA TYPE B NEGATIVE FOR TYPE B (NEGATIVE)
[2024-07-07 11:22] LABS: CREATINE KINASE, TOTAL ONLY 151 U/L (39-308)
[2024-07-07 11:23] LABS: TROPONIN I-HIGH SENSITIVITY Less Than 4 ng/L (<76)
[2024-07-07 11:29] LABS: B-TYPE NATRIURETIC PEPTIDE 9 pg/mL (0-100)
[2024-07-07 11:37] VITALS: BP 154/83; PULSE 61; RESP 14; O2SAT 98
[2024-07-07] MEDS: SODIUM CHLORIDE 0.9% 1,000 ML IV ONE (11:41)
[2024-07-07] MEDS: ACETAMINOPHEN 500 MG TABLET PO ONE (11:43)
== END | disposition home or self-care (01) ==
LOC: EMS 10:10
DX: B34.9 Viral infection, unspecified (principal); M79.10 Myalgia, unspecified site; R05.9 Cough, unspecified; R68.83 Chills (without fever); I10 Essential (primary) hypertension; F17.210 Nicotine dependence, cigarettes, uncomplicated; Z79.1 Long term (current) use of non-steroidal anti-inflammatories (NSAID); Z90.49 Acquired absence of other specified parts of digestive tract; Z79.899 Other long term (current) drug therapy; Z20.822 Contact with and (suspected) exposure to COVID-19
CPT/HCPCS: 99284; 96360; 87426; 80048; 82550; 83880; 84484; 85025; 87804; 36415; 93005; J7030

== ENCOUNTER 2025-01-17 07:15 | Emergency (ER) | payer MEDICARE, MEDICAID ==
[~2025-01-17] VITALS: Ht 182.9 cm; Wt 104.0 kg
[~2025-01-17 07:15] MED LIST changes: -CHLO25TA3 PO; +CHOL100062 PO; +DICL50TA7 PO; +FERR-72 PO; +GABA-1181 PO; -HYDR50CA6 PO; +HYDR50CA7 PO; -IBUP-2070 PO; -METH-811 PO; +POLY119P3 PO; +PREG75CA76 PO; +VENL-66 PO
[2025-01-17 07:33] VITALS: BP 125/81; PULSE 96; RESP 18; TEMP 98.4; O2SAT 97
== END 2025-01-17 08:39 | disposition left against medical advice (07) ==
LOC: EMS 07:37
DX: R20.2 Paresthesia of skin (principal); R53.1 Weakness; I10 Essential (primary) hypertension; F17.210 Nicotine dependence, cigarettes, uncomplicated; Z90.49 Acquired absence of other specified parts of digestive tract; Z79.899 Other long term (current) drug therapy
CPT/HCPCS: 99282; Z7502

== ENCOUNTER 2025-03-30 08:16 | Emergency (ER) | payer MEDICARE, MEDICAID ==
[~2025-03-30] VITALS: Ht 182.9 cm; Wt 102.3 kg
[2025-03-30 08:24] VITALS: TEMP 98.2
[2025-03-30 08:55] LABS: APPEARANCE,URINE CLEAR (CLEAR); GLUCOSE, URINE (UA) NEGATIVE (NEGATIVE); LEUKOCYTE ESTERASE ,URINE NEGATIVE (NEGATIVE); NITRATE,URINE NEGATIVE (NEGATIVE); OCCULT BLOOD,URINE NEGATIVE (NEGATIVE); SPECIFIC GRAVITIY, URINE 1.011 (1.003-1.030)
[2025-03-30 11:07] LABS: PLATELET COUNT (AUTO) 234 K/uL (150-450); RED BLOOD CELL COUNT(AUTO) 4.32 MIL/uL (4.50-5.90); RED CELL DISTRIBUTION WIDTH 13.0 % (11.5-14.5); WHITE BLOOD COUNT (AUTO) 5.6 K/uL (4.5-11.0)
[2025-03-30 11:14] LABS: CALCIUM, TOTAL 8.6 mg/dL (8.8-10.5); CREATININE 0.91 mg/dL (0.60-1.30); GLOMERULAR FILTR. RATE CALC > 60 mL/min (>60); GLUCOSE,RANDOM 68 mg/dL (70-110); SODIUM SERUM 138 mmol/L (136-145); UREA NITROGEN, BLOOD 12 mg/dL (7-18)
[2025-03-30 11:55] VITALS: BP 124/83; PULSE 80; RESP 16; O2SAT 99
== END 2025-03-30 12:14 | disposition left against medical advice (07) ==
LOC: EMS 08:16
DX: Z00.00 Encounter for general adult medical examination without abnormal findings (principal); I10 Essential (primary) hypertension; M19.90 Unspecified osteoarthritis, unspecified site; F17.210 Nicotine dependence, cigarettes, uncomplicated; F14.90 Cocaine use, unspecified, uncomplicated; Z86.19 Personal history of other infectious and parasitic diseases; Z90.49 Acquired absence of other specified parts of digestive tract; Z79.899 Other long term (current) drug therapy
CPT/HCPCS: 80048; 81001; 82962; 85025; 99283

== ENCOUNTER 2025-05-20 08:02 | Emergency (ER) | payer MEDICARE, MEDICAID ==
[~2025-05-20] VITALS: Ht 183.5 cm; Wt 104.5 kg
[~2025-05-20 08:02] MED LIST changes: -TAMS0.4C94 PO
[2025-05-20 08:10] VITALS: BP 137/83; PULSE 97; RESP 18; TEMP 98.6; O2SAT 97
[2025-05-20] MEDS ORDERED: POLYOS OS (08:26)
[2025-05-20] MEDS ORDERED: AMOX-457 PO (08:26)
[2025-05-20] MEDS ORDERED: SULF1TAB94 PO (08:26)
[2025-05-20] MEDS: SULFAMETHOX/TRIMETH DS 800-160 MG/TABLET PO ONE (08:40)
[2025-05-20] MEDS: AMOX TR/POT CLAV 875 MG/125 MG TABLET PO ONE (08:40)
[2025-05-20] MEDS: POLYMYXIN B/TRIMETHOPRIM 10 ML OPHTHALMIC SOLUTION OS ONE (08:45)
== END 2025-05-20 08:47 | disposition home or self-care (01) ==
LOC: EMS 08:02
DX: H00.015 Hordeolum externum left lower eyelid (principal); L03.213 Periorbital cellulitis; H10.9 Unspecified conjunctivitis; I10 Essential (primary) hypertension; M19.90 Unspecified osteoarthritis, unspecified site; F17.210 Nicotine dependence, cigarettes, uncomplicated; F14.90 Cocaine use, unspecified, uncomplicated; Z90.49 Acquired absence of other specified parts of digestive tract; Z86.19 Personal history of other infectious and parasitic diseases; Z79.899 Other long term (current) drug therapy
CPT/HCPCS: 99284; Z7502; Z7610